=== PATIENT | female | born 1985 | race African-American/Black ===

== ENCOUNTER 2022-04-30 02:11 | Emergency (ER) | payer MEDICAID ==
[~2022-04-30] VITALS: Ht 157.5 cm; Wt 54.4 kg
[2022-04-30 02:20] VITALS: BP 186/106
--- NOTE | 2022-04-30 02:20 | NUR ---
Patient BIB by La GARRETT. C/O pre-book today.
--- NOTE | 2022-04-30 02:40 | NUR ---
Dr. Madsen examining patient.
[2022-04-30] MEDS ORDERED: KETOROLAC 60 MG/2 ML VIAL IM ONE (02:45)
[2022-04-30 02:54] VITALS: BP 174/99
--- NOTE | 2022-04-30 02:56 | NUR ---
PATIENT [facility] POLICE DEPT. PATIENT EXAMINED BY DR. WU. PATIENT MEDICALLY CLEARED AND RELEASED IN CUSTODY IN STABLE CONDITION. ORIGINAL PRE-BOOK FORM GIVEN TO OFFICER.
== END 2022-04-30 02:56 ==
LOC: MED 02:11
DX: R51.9 Headache, unspecified (principal); F32.9 Major depressive disorder, single episode, unspecified; Z02.89 Encounter for other administrative examinations
CPT/HCPCS: 96372; 99283; J1885